=== PATIENT | female | born 1940 | race Caucasian/White ===

== ENCOUNTER → 2020-08-08 | Outpatient (CLI) | payer OTHER | END | disposition home or self-care (01) | LOC: CFH 11:16 | PROVIDERS: ATTEND Orthopaedic Surgery | DX: S52.571A Other intraarticular fracture of lower end of right radius, initial encounter for closed fracture (principal); S52.611A Displaced fracture of right ulna styloid process, initial encounter for closed fracture; X58.XXXA Exposure to other specified factors, initial encounter; Y93.89 Activity, other specified; Y92.89 Other specified places as the place of occurrence of the external cause; Y99.8 Other external cause status ==

== ENCOUNTER 2020-08-09 19:39 | Emergency (ER) | payer OTHER ==
[~2020-08-09] VITALS: Ht 167.6 cm; Wt 75.0 kg
--- NOTE | 2020-08-09 20:20 | NUR ---
bib ems from home. pt fell on sidewalk on wednesday and broke right wrist. seen and treated at [facility]. stated having a ct scan and 9 xrays done. pt stated pain is unbearable and her surgeon at [facility] (dr. mal reynoso) is not getting back to her about when she is going to have surgery. pt stated being fed up and wanted to come here and not [facility]. pt placed in hosp gown, bp and continuous pulse ox in place. arm elevatesd and provided ice. awaiting erp eval
--- NOTE | 2020-08-09 21:09 | NUR ---
erp at bedside
[2020-08-09] MEDS ORDERED: OXYcodone/APAP 5/325MG TABLET ONE (21:16)
[2020-08-09] MEDS ORDERED: OXYcodone/APAP 5/325MG TABLET PO ONE (21:30)
[2020-08-09 21:42] VITALS: BP 184/78
--- NOTE | 2020-08-09 22:20 | NUR ---
DEZ SPOKE WITH PT EARLIER ABOUT PAIN MEDICATIONS AND FOLLOW UP WITH ORTHO. DR. RUCKER SPOKE WITH [facility] AND DR. SHETTY CALLED THE UNIT TO EXPLAIN THAT PT IS STABLE AND SURGERY WILL BE SCHEDULED. PT AT FIRST REFUSING [employer] SPLINT AND STATES SHE IS NOT HAVING ANY QUESTIONS ANSWERED. DR. RUCKER AND THIS RN SPOKE WITH PT ON MULTIPLE OCCATIONS AND PT IS NOW AGREEABLE TO GETTING SUGART[employer] SPLINT AND DRESSING.
== END 2020-08-09 22:58 | disposition home or self-care (01) ==
LOC: ED 22:00
DX: G89.11 Acute pain due to trauma (principal); M25.531 Pain in right wrist; W18.30XA Fall on same level, unspecified, initial encounter; Y93.89 Activity, other specified; Y92.89 Other specified places as the place of occurrence of the external cause; Y99.8 Other external cause status
CPT/HCPCS: 29125; 99283